=== PATIENT | female | born 1995 | race Caucasian/White ===

== ENCOUNTER 2024-03-26 07:57 | Emergency (ER) | payer BC ==
[2024-03-26 08:32] LABS: HCG UR QUAL NEGATIVE
[2024-03-26 08:38] LABS: BILIRUBIN,URINE NEGATIVE (NEGATIVE); GLUCOSE, URINE (UA) NEGATIVE (NEGATIVE); KETONES,URINE (UA) NEGATIVE (NEGATIVE); LEUKOCYTE ESTERASE, URINE TRACE (NEGATIVE); NITRITE,URINE NEGATIVE (NEGATIVE); OCCULT BLOOD,URINE LARGE (NEGATIVE); PROTEIN,URINE 100 mg/dL (NEGATIVE); UROBILINOGEN,URINE 1 (NORMAL) E.U./dL (NORMAL)
[2024-03-26 08:39] LABS: CLARITY,URINE BLOODY (CLEAR)
[2024-03-26 08:44] LABS: WBC,URINE 0-3 /HPF (0-5)
[2024-03-26 08:45] LABS: BACTERIA,URINE Moderate /HPF (None Seen); RBC,URINE TNTC /HPF (0-5); SQUAMOUS EPITHELIAL CELL,UR FEW Squamous (<= Few)
--- NOTE | 2024-03-26 09:11 | ED Physician Documentation ---
PD HPI ABD PAIN - Stated complaint Stated Complaint: - Chief complaint Chief Complaint: Abd Pain - History obtained from History obtained from: Patient - Treatment prior to arrival Treatment prior to arrival: The patient comes to the emergency department chief complaint of lower abdominal pain and vaginal bleeding. She states that she has had irregular periods ever since she first began having them in her teens. She has seen a parking assistant about this and they thought maybe she had a debris through because she has pain associated with her periods. However, this was in [place] and after some time being on control pills, the patient decided to discontinue them because she did not like the way they made her feel and the menstrual irregularity seemed to improve. However, the patient has noticed recently that her periods seem to be becoming irregular again. She states that usually before she is going to start her period, she has some low abdominal pain and she starts within a day or so. However, she began having pain last week and she did not start her period for another 5 days. Then, she had a brief period of bleeding 1 day and then the bleeding stopped. The patient states that she got up this morning and when she stood up, she felt a strong pain and suddenly began passing a lot of clotted blood. She states that the pain is worse than usual and that is what prompted her to come in. It's in her low abdomen and both quadrants as well as around the back. No fevers or chills. She states she has been nauseated but no vomiting. PD PAST MEDICAL HISTORY - Past Medical History Past Medical History: No - Past Surgical History Past Surgical History: Yes HEENT: Other - Present Medications Home Medications: Ambulatory Orders Medication Instructions Recorded Confirmed Venlafaxine [Effexor] 1 tab PO DAILY 03/26/24 03/26/24 - Allergies Allergies/Adverse Reactions: Allergies Allergy/AdvReac Type Severity Reaction Status Date / Time diphenhydramine Allergy Hives Verified 03/26/24 08:02 - Social History Does the pt smoke?: No Smoking Status: Never smoker Does the pt drink ETOH?: Yes Substance Use and Type: Marijuana - Immunizations Immunizations are current?: Yes PD ED PE NORMAL - Vitals Vital signs reviewed: Yes - General General: Alert and oriented X 3, No acute distress, Well developed/nourished - HEENT HEENT: Atraumatic, PERRL, EOMI, Moist mucous membranes - Neck Neck: Supple, no meningeal sign - Cardiac Cardiac: RRR, No murmur - Respiratory Respiratory: No respiratory distress, Clear bilaterally - Abdomen Abdomen: Soft, Non distended, Other (Marked tenderness bilateral lower quadrants, no rebound or guarding.) - Back Back: No CVA TTP - Derm Derm: Normal color, Warm and dry, No rash - Extremities Extremities: No deformity - Neuro Neuro: Alert and oriented X 3 - Psych Psych: Normal mood, Normal affect Results - Vitals Vitals: Oxygen O2 Source Room air - Labs Labs: Microbiology 03/26/24 08:15 Urine Culture - Final Urine,Random Less Than 10,000 COLONIES/ML UROGENITAL MAGED Laboratory Tests 03/26/24 03/26/24 03/26/24 08:15 09:10 09:10 WBC 8.3 RBC 4.62 Hgb 13.6 Hct 40.7 MCV 88.1 MCH 29.4 MCHC 33.4 RDW 14.0 Plt Count 283 MPV 9.8 Neut # (Auto) 6.4 Lymph # (Auto) 1.2 L [place] # (Auto) 0.4 Eos # (Auto) 0.2 Baso # (Auto) 0.1 Absolute Nucleated RBC 0.00 Nucleated RBC % 0.0 Sodium 139 Potassium 3.8 Chloride 105 Carbon Dioxide 27 Anion Gap 7.0 BUN 8 Creatinine 0.8 Estimated GFR (MDRD) 87 L Glucose 85 Calcium 9.9 Total Bilirubin 3.3 H AST 17 ALT 9 L Alkaline Phosphatase 42 Total Protein 7.0 Albumin 5.0 Globulin 2.0 L Albumin/Globulin Ratio 2.5 H Lipase 12 Urine Color RED/BLOODY Urine Clarity BLOODY Urine pH 6.0 Ur Specific [place] >=1.030 H Urine Protein 100 H Urine Glucose (UA) NEGATIVE Urine Ketones NEGATIVE Urine Occult Blood LARGE H Urine Nitrite NEGATIVE Urine Bilirubin NEGATIVE Urine Urobilinogen 1 (NORMAL) Ur Leukocyte Esterase TRACE H Urine RBC TNTC H Urine WBC 0-3 Ur Squamous Epith Cells FEW Squamous Urine Bacteria Moderate H Ur Microscopic Review INDICATED Urine Culture Comments INDICATED Urine HCG, Qual NEGATIVE - Rads (name of study) Pelvic ultrasound Relevant Findings:: Final report received, See rad report (Bilateral ovarian cysts, mild free fluid in pelvis) PD Medical Decision Making - ED course Complexity details: reviewed results, re-evaluated patient, considered differential, d/w patient ED course: The patient was worked up with UA, test, and labs initially, as well as ultrasound. She declined any symptomatic management in the ED. The patient's workup was unremarkable except she was found to have bilateral ovarian cysts on her ultrasound and this may explain some of the pain she is having. I have advised her to follow-up with [facility] to discuss any further concerns and treatment options. We have discussed the usual indications for return. Departure - Departure Disposition: 01 Home, Self Care Clinical Impression: Dysfunctional uterine bleeding Ovarian cyst Qualifiers: Laterality: bilateral Qualified Code(s): N83.201 - Unspecified ovarian cyst, right side Condition: Stable Instructions: ED Bleed Irregular Vaginal, ED Cyst Ovarian Follow-Up: Rajan Corcoran MD [Provider Admit Priv/Credential] - Comments: Your labs look good. Your ultrasound shows cysts on both ovaries with some free fluid in your pelvis, indicating that you have probably had some degree of rupture of each of your cyst. This probably caused the pain. Your uterus was normal on ultrasound. It is not uncommon for cysts to fluctuate in size with various phases of the menstrual cycle, and it is probable that they have been expanding over the last week and causing you pain. Sometimes this expansion will cause a rupture which can escalate the pain quickly. However, this is generally temporary and should feel better on its own in the coming days. Please call her women's clinic to establish care and set up a follow-up appointment for both your irregular bleeding and your cysts. Forms: PCP List Discharge Date/Time: 03/26/24 10:42
[2024-03-26 09:17] LABS: BASOPHILS # (AUTO) 0.1 10^3/uL (0.0-0.1); BASOPHILS % (AUTO) 0.6 %; EOSINOPHILS # (AUTO) 0.2 10^3/uL (0.0-0.7); EOSINOPHILS % (AUTO) 2.4 %; HCT - HEMATOCRIT 40.7 % (37.0-47.0); HGB - HEMOGLOBIN 13.6 g/dL (12.0-16.0); LYMPHOCYTES # (AUTO) 1.2 10^3/uL (1.5-3.5); LYMPHOCYTES % (AUTO) 14.6 %; MEAN CORPUSCULAR HEMOGLOBIN 29.4 pg (27.0-31.0); MEAN CORPUSCULAR HGB CONC 33.4 g/dL (32.0-36.0); MEAN CORPUSCULAR VOLUME 88.1 fL (81.0-99.0); MEAN PLATELET VOLUME 9.8 fL (7.9-10.8); MONOCYTES # (AUTO) 0.4 10^3/uL (0.0-1.0); MONOCYTES % (AUTO) 5.3 %; NEUTROPHILS # (AUTO) 6.4 10^3/uL (1.5-6.6); PLT - PLATELET COUNT 283 10^3/uL (130-450); RED BLOOD COUNT 4.62 10^6/uL (4.20-5.40); WHITE BLOOD COUNT 8.3 x10^3/uL (4.8-10.8)
[2024-03-26 09:33] LABS: ALBUMIN/GLOBULIN RATIO 2.5 (1.0-2.2); BILIRUBIN,TOTAL 3.3 mg/dL (0.2-1.0); CALCIUM 9.9 mg/dL (8.5-10.3); CREATININE 0.8 mg/dL (0.6-1.3); POTASSIUM 3.8 mmol/L (3.5-4.5)
--- NOTE | 2024-03-26 10:15 | Ultrasound Report ---
PROCEDURE: Pelvic Complete INDICATIONS: low abd/pelvis pain, heavy bleeding TECHNIQUE: Real-time transabdominal scanning was performed of the pelvic organs, with image documentation. COMPARISON: None FINDINGS: Uterus: 8 x 3.4 x 4.7 cm. Homogenous echotexture. Anteverted positioning. Endometrium measures 8 mm. Ovaries: Mildly enlarged left ovary measuring 23 cc. Borderline-enlarged left ovary measures 15 cc. Possible collapsed cyst/hemorrhagic cysts are seen measuring 3.9 x 3.8 cm on the right and 3.1 x 3.1 cm on the left. Color and spectral flows are detected. Other: No pathologic free fluid. IMPRESSION: Limited transabdominal only imaging. Mildly enlarged ovaries, with suspected bilateral collapsed versus hemorrhagic cysts. These are likel y physiologic in this age group. Color and spectral flows are detected at this time bilaterally. No acute uterine abnormality. Reviewed by: Rusty Kruger MD on 03/26/2024 10:14 AM PDT Approved by: Rusty Kruger MD on 03/26/2024 10:14 AM PDT Station ID: [id number]
[2024-03-26 10:46] VITALS: BP 124/82; O2SAT 100
== END 2024-03-26 10:42 | disposition home or self-care (01) ==
LOC: ED 07:57
DX: N93.8 Other specified abnormal uterine and vaginal bleeding (principal); N83.201 Unspecified ovarian cyst, right side
CPT/HCPCS: 36415; 80053; 81001; 81003; 81025; 83690; 85025; 87086; 99283; 99284